=== PATIENT | male | born 1970 | race Caucasian/White ===

== ENCOUNTER 2017-09-01 06:26 | Inpatient (IN) | payer BC ==
[2017-09-01 07:11] LABS: ADD MAN DIFF? NO
[2017-09-01 07:14] LABS: ABNORMAL IP MESSAGE 1; BASOPHILS % 0.1 % (0.0-2.0); HEMATOCRIT 41.3 % (42.0-52.0); HEMOGLOBIN 14.2 g/dl (14.0-18.0); LYMPHOCYTES # 0.5 10^3/ul (0.8-2.9); LYMPHOCYTES % 3.7 % (15.0-51.0); MEAN CORPUSCULAR HEMOGLOBIN 30.7 pg (29.0-33.0); MEAN CORPUSCULAR HGB CONC 34.4 g/dl (32.0-37.0); MEAN CORPUSCULAR VOLUME 89.4 fl (82.0-101.0); MEAN PLATELET VOLUME 8.6 fl (7.4-10.4); MONOCYTE # 1.2 10^3/ul (0.3-0.9); MONOCYTES % 8.8 % (0.0-11.0); NEUTROPHILS % 86.8 % (39.0-77.0); PLATELET COUNT 213 10^3/UL (140-415); POSITIVE DIFF @See below; RED BLOOD COUNT 4.62 10^6/ul (4.70-6.10); RED CELL DISTRIBUTION WIDTH 11.7 % (11.5-14.5)
[2017-09-01 07:14] LABS: WHITE BLOOD COUNT 13.8 10^3/ul (4.8-10.8)
[2017-09-01] MEDS: morphine 4 MG/ML VIAL IV (07:16)
[2017-09-01] MEDS: ONDANSETRON 4 MG INJ IV (07:16)
[2017-09-01] MEDS: SOD CHLORIDE 0.9% 1,000 ML IV ×2 (07:16→12:47)
[2017-09-01] MEDS: KETOROLAC 30 MG INJ IV (07:16)
[2017-09-01 07:37] LABS: ALANINE AMINOTRANSFERASE 29 IU/L (13-69); ALBUMIN 4.8 g/dl (3.3-4.9); ALBUMIN/GLOBULIN RATIO 1.26; ALKALINE PHOSPHATASE 62 IU/L (42-121); ANION GAP 17 (8-16); ASPARTATE AMINO TRANSFERASE 27 IU/L (15-46); BILIRUBIN,INDIRECT 1.1 mg/dl (0-1.1); BILIRUBIN,TOTAL 1.1 mg/dl (0.2-1.3); BLOOD UREA NITROGEN 17 mg/dl (7-20); CALCIUM 9.5 mg/dl (8.4-10.2); CARBON DIOXIDE 28 mmol/L (21-31); CHLORIDE 101 mmol/L (97-110); CREATININE 0.83 mg/dl (0.61-1.24); GLUCOSE 149 mg/dl (70-220); LIPASE 76 U/L (23-300); POTASSIUM 3.7 mmol/L (3.5-5.1); SODIUM 142 mmol/L (135-144); TOTAL PROTEIN 8.6 g/dl (6.1-8.1)
[2017-09-01 07:52] LABS: TROPONIN-I < 0.012 ng/ml (0.00-0.12)
[2017-09-01 08:07] LABS: ADD UMIC YES; UR ASCORBIC ACID NEGATIVE (NEGATIVE); UR BACTERIA FEW /HPF (NONE SEEN); UR BILIRUBIN (Dip) NEGATIVE (NEGATIVE); UR BLOOD (Dip) 2+ mg/dL (NEGATIVE); UR CLARITY CLEAR (CLEAR); UR COLOR YELLOW (YELLOW); UR GLUCOSE (Dip) NEGATIVE (NEGATIVE); UR KETONES (Dip) 1+ mg/dL (NEGATIVE); UR LEUKOCYTE ESTERASE (Dip) NEGATIVE Leu/ul (NEGATIVE); UR MUCUS MANY /HPF (NONE SEEN); UR NITRITE (Dip) NEGATIVE (NEGATIVE); UR RBC 26 /HPF (0-5); UR SPECIFIC GRAVITY (Dip) 1.027 (1.003-1.030); UR TOTAL PROTEIN (Dip) NEGATIVE (NEGATIVE); UR UROBILINOGEN (Dip) NEGATIVE (NEGATIVE); UR WBC 1 /HPF (0-5)
[2017-09-01] MEDS: SOD CHLORIDE 0.9% 100 ML (08:17)
[2017-09-01] MEDS: IOHEXOL 300MG/ML 150 ML BTL (08:18)
[2017-09-01] MEDS: metroNIDAZOLE 500 MG/NS (PMX) 100 ML IVPB (08:46)
[2017-09-01] MEDS: CIPROFLOXACIN 400MG/D5W 200 ML IVPB (09:17)
[2017-09-01] MEDS ORDERED: ONDANSETRON 4 MG INJ IV ×4 (10:30→16:30)
[2017-09-01] MEDS ORDERED: ACETAMINOPHEN 325 MG TAB PO ×3 (10:30→16:00)
[2017-09-01] MEDS ORDERED: NA PHOSPHATE/BIPHOS 133 ML ENEMA PR (12:30)
[2017-09-01] MEDS ORDERED: MAGNESIUM HYDROXIDE 30ML CUP PO (12:30)
[2017-09-01] MEDS ORDERED: morphine 2 MG INJ IV ×2 (12:30→16:00)
[2017-09-01] MEDS ORDERED: hydrALAzine 20 MG INJ IV (12:30)
[2017-09-01] MEDS ORDERED: NACL 0.9% 3 ML SYG IV (12:30)
[2017-09-01] MEDS ORDERED: ALBUTEROL/IPRATROPIUM (NEB) 3 ML AMP HHN (12:30)
[2017-09-01] MEDS ORDERED: LORAZEPAM 2 MG INJ IV (12:30)
[2017-09-01] MEDS ORDERED: NITROGLYCERIN (SL) 0.4 MG TAB SL (12:30)
[2017-09-01] MEDS ORDERED: DOCUSATE SODIUM 100 MG CAP PO (12:30)
[2017-09-01] MEDS: DEXTROSE 5%-0.45% NACL 1,000 ML IV (14:00)
[2017-09-01] MEDS: AZTREONAM 2 GM in SOD CHLORIDE 0.9% 100 ML IVPB ×2 (14:00→23:11)
[2017-09-01 15:04] LABS: INR 1.04; PROTIME 13.7 Sec (11.9-14.9); PT RATIO 1.1
[2017-09-01 15:05] LABS: PARTIAL THROMBOPLASTIN TIME 27.8 Sec (25.0-35.0)
[2017-09-01] MEDS ORDERED: OXYCODONE/ACETAMINOPHEN (5/325) TAB PO (16:00)
[2017-09-01] MEDS ORDERED: MIDAZOLAM 1 MG/ML 2 ML INJ (16:02)
[2017-09-01] MEDS ORDERED: METOCLOPRAMIDE 10 MG INJ (16:02)
[2017-09-01] MEDS ORDERED: PROPOFOL 100 ML (16:02)
[2017-09-01] MEDS ORDERED: NEOSTIGMINE 3 MG/3 ML SYRINGE (16:19)
[2017-09-01] MEDS ORDERED: CIPROFLOXACIN 400MG/D5W 200 ML (16:19)
[2017-09-01] MEDS ORDERED: ROCURONIUM 50 MG INJ (16:19)
[2017-09-01] MEDS ORDERED: metroNIDAZOLE 500 MG/NS (PMX) 100 ML IVPB (16:19)
[2017-09-01] MEDS ORDERED: KETOROLAC 30 MG INJ (16:19)
[2017-09-01] MEDS: BUPIVACAINE 0.25% (MPF) 30 ML INJ ×2 (16:23→16:43)
[2017-09-01] MEDS: LIDOCAINE 1%/EPI 30 ML INJ ×2 (16:23→16:43)
[2017-09-01] MEDS ORDERED: ROPIVACAINE 0.5 % 30 ML VIAL (16:27)
[2017-09-01] MEDS ORDERED: ONDANSETRON 4 MG INJ (16:28)
[2017-09-01] MEDS ORDERED: HYDROmorphONE (0.2 MG/ML) 10ML SYG IV ×3 (16:30)
[2017-09-01] MEDS ORDERED: DIPHENHYDRAMINE 50 MG INJ IV (16:30)
[2017-09-01] MEDS: MEPERIDINE 25 MG INJ IV (17:33)
[2017-09-01] MEDS: D5W-0.45 NACL + KCL 20 MEQ 1,000 ML IV (19:05)
[2017-09-01] MEDS ORDERED: HEPARIN 5,000 UNIT/0.5 ML VIAL SC (21:00)
[2017-09-02] MEDS: D5W-0.45 NACL + KCL 20 MEQ 1,000 ML IV ×2 (01:55→11:55)
[2017-09-02] MEDS: HYDROCODONE/APAP (5/325) TAB PO ×2 (04:53→11:12)
[2017-09-02 05:01] LABS: ADD MAN DIFF? NO
[2017-09-02 05:10] LABS: BASOPHILS % 0.2 % (0.0-2.0); EOSINOPHILS # 0.1 10^3/ul (0.0-0.5); EOSINOPHILS % 0.9 % (0.0-7.0); HEMATOCRIT 36.3 % (42.0-52.0); HEMOGLOBIN 12.3 g/dl (14.0-18.0); LYMPHOCYTES # 1.2 10^3/ul (0.8-2.9); LYMPHOCYTES % 15.3 % (15.0-51.0); MEAN CORPUSCULAR HEMOGLOBIN 31.1 pg (29.0-33.0); MEAN CORPUSCULAR HGB CONC 33.9 g/dl (32.0-37.0); MEAN CORPUSCULAR VOLUME 91.9 fl (82.0-101.0); MEAN PLATELET VOLUME 8.9 fl (7.4-10.4); MONOCYTE # 0.7 10^3/ul (0.3-0.9); MONOCYTES % 8.9 % (0.0-11.0); NEUTROPHILS % 74.6 % (39.0-77.0); PLATELET COUNT 181 10^3/UL (140-415); RED BLOOD COUNT 3.95 10^6/ul (4.70-6.10); RED CELL DISTRIBUTION WIDTH 11.9 % (11.5-14.5)
[2017-09-02 05:10] LABS: WHITE BLOOD COUNT 8.1 10^3/ul (4.8-10.8)
[2017-09-02 05:36] LABS: ANION GAP 12 (8-16); BLOOD UREA NITROGEN 14 mg/dl (7-20); CALCIUM 8.4 mg/dl (8.4-10.2); CARBON DIOXIDE 28 mmol/L (21-31); CHLORIDE 104 mmol/L (97-110); CHOL/HDL RATIO 3.3 RATIO; CHOLESTEROL 159 mg/dl (100-200); CREATININE 1.06 mg/dl (0.61-1.24); GLUCOSE 118 mg/dl (70-220); HDL CHOLESTEROL 48 mg/dl (27-67); LDL CHOLESTEROL,CALCULATED 100 mg/dl; MAGNESIUM 2.3 mg/dl (1.7-2.5); PHOSPHORUS 2.7 mg/dl (2.5-4.9); POTASSIUM 3.9 mmol/L (3.5-5.1); SODIUM 140 mmol/L (135-144); TRIGLYCERIDES 57 mg/dl (0-149)
[2017-09-02] MEDS: PANTOPRAZOLE 40 MG INJ IV (06:26)
[2017-09-02] MEDS: ENOXAPARIN 40 MG/0.4 ML SYG SC (06:30)
[2017-09-02 07:32] LABS: HEMOGLOBIN A1C 5.3 % (0-5.9)
[2017-09-02] MEDS: AZTREONAM 2 GM in SOD CHLORIDE 0.9% 100 ML IVPB (08:52)
[2017-09-02] MEDS: DEXTROSE 5%-0.45% NACL 1,000 ML IV ×2 (10:00)
== END 2017-09-02 14:10 | disposition home or self-care (01) | DRG 343 ==
LOC: FTE 06:26 → MS1 10:06
PROC: 0DTJ4ZZ Resection of Appendix, Percutaneous Endoscopic Approach (ICD-10-PCS; principal; 2017-09-01 15:30)
DX: K35.80 Unspecified acute appendicitis (principal)
CPT/HCPCS: 36415; 74177; 76705; 80048; 80053; 80061; 81001; 83036; 83690; 83735; 84100; 84439; 84443; 84484; 85025; 85610; 85730; 93005; 96374; 96375; 99285-25